=== PATIENT | male | born 1985 | race Hispanic/Latino ===

== ENCOUNTER 2017-08-29 22:04 | Emergency (ER) | payer SELFPAY ==
--- NOTE | 2017-08-29 22:43 | C.PDOC ---
History Of Present Illness 32 year old male presents to the ER in police custody for substance abuse. Patient has not verbalized any physical complaints. Chief Complaint (Nursing): Substance Abuse History Per: Patient History/Exam Limitations: no limitations Onset/Duration Of Symptoms: Hrs Current Symptoms Are (Timing): Still Present Suicide/Self Injury Attempted (Context): None Modifying Factor(s): Other (Substance abuse) Involuntary Hold By: Local Law Enforcement Recent travel outside of the [place]: No Past Medical History Reviewed: Historical Data, Nursing Documentation, Vital Signs Vital Signs: Last Vital Signs Temp 98 F 08/30/17 00:45 Pulse 70 08/30/17 00:45 Resp 16 08/30/17 00:45 BP 135/70 08/30/17 00:45 Pulse Ox 99 08/30/17 01:03 - Medical History PMH: No Chronic Diseases Surgical History: No Surg Hx Family History: States: Unknown Family Hx - Social History Hx Alcohol Use: Yes Hx Substance Use: Yes Review Of Systems Constitutional: Negative for: Fever, Chills Gastrointestinal: Negative for: Nausea, Vomiting, Diarrhea Physical Exam - Physical Exam Appears: Non-toxic, No Acute Distress, Other (Lethargic but arousable) Skin: Warm, Dry Head: Atraumatic, Normacephalic Eye(s): bilateral: Normal Inspection (Not pin point), PERRL, EOMI Oral Mucosa: Moist Neck: Normal, Supple Chest: Symmetrical, No Tenderness Cardiovascular: Rhythm Regular Respiratory: Normal Breath Sounds, No Rales, No Rhonchi, No Wheezing Gastrointestinal/Abdominal: Soft, No Tenderness Extremity: Other (Small abrasion to left hand) Neurological/Psych: No Normal Speech, Normal Cranial Nerves, No Cerebellar Signs , Other (No focal deficits, slurring of speech, lethatgic but response to stimuli.) ED Course And Treatment - Laboratory Results Result Diagrams: 08/29/17 23:03 08/29/17 23:03 O2 Sat by Pulse Oximetry: 99 (Room air) Pulse Ox Interpretation: Normal Progress Note: Blood work and urinalysis ordered. Patient persists to be lethargic but arousable, normal vital signs. Patient is alert, conscious, oriented x3, and steady of gait; cleared to be discharged. Disposition Counseled Patient/Family Regarding: Diagnosis - Disposition Referrals: [facility] [Outside] Disposition: HOME/ ROUTINE Disposition Time: 01:03 Condition: STABLE Instructions: Polysubstance Abuse (ED) Forms: [employer] (Surinamese) - POA Present On Arrival: None - Clinical Impression Clinical Impression: Drug abuse - Scribe Statement The provider has reviewed the documentation as recorded by the Scribevelyn Butts All medical record entries made by the Scribe were at my direction and personally dictated by me. I have reviewed the chart and agree that the record accurately reflects my personal performance of the history, physical exam, medical decision making, and the department course for this patient. I have also personally directed, reviewed, and agree with the discharge instructions and disposition.
[2017-08-29 22:47] LABS: URINE BILIRUBIN NEGATIVE (NEGATIVE); URINE BLOOD NEGATIVE (NEGATIVE); URINE COLOR Colorless (YELLOW); URINE GLUCOSE (UA) NORMAL (Normal); URINE KETONE NEGATIVE (NEGATIVE); URINE LEUKOCYTE ESTERASE NEG Leu/uL (Negative); URINE PROTEIN NEGATIVE (NEGATIVE); URINE UROBILINOGEN NORMAL mg/dL (0.2-1.0); WBC URINE < 1 /hpf (0-5)
[2017-08-29 23:06] LABS: BASO # 0.1 K/uL (0.0-0.2); BASO % 1.2 % (0.0-2.0); EOS # 0.5 K/uL (0.0-0.7); EOS % 7.4 % (0.0-4.0); HEMATOCRIT 36.6 % (35.0-51.0); LYMPH # 2.2 K/uL (1.0-4.3); LYMPH % 30.6 % (20.0-40.0); MEAN CELL VOLUME 83.7 fL (80.0-94.0); MEAN CORPUSCULAR HEMOGLOBIN 28.3 pg (27.0-31.0); MEAN CORPUSCULAR HGB CONC 33.8 g/dL (33.0-37.0); MEAN PLATELET VOLUME 6.7 fL (7.2-11.7); MONO # 0.7 K/uL (0.0-0.8); MONO % 9.9 % (0.0-10.0); NRBC % 0.1 % (0.0-2.0); RED CELL DISTRIBUTION WIDTH 15.3 % (11.5-14.5); WHITE BLOOD COUNT 7.3 K/uL (4.8-10.8)
[2017-08-29 23:19] LABS: ALCOHOL SERUM < 10 mg/dl (0-10); ALKALINE PHOSPHATASE 88 U/L (38-126); ALT/SGPT 19 U/L (21-72); AST/SGOT 18 U/L (17-59); BILIRUBIN,TOTAL 0.3 mg/dL (0.2-1.3); BLOOD UREA NITROGEN 13 mg/dL (9-20); CALCIUM 8.9 mg/dl (8.6-10.4); CARBON DIOXIDE 28 mmol/L (22-30); CHLORIDE 99 mmol/L (98-107); GFR AFRICAN-AMERICAN > 60; GLUCOSE,RANDOM 89 mg/dL (75-110); POTASSIUM 3.9 mmol/L (3.6-5.2); SODIUM 137 mmol/L (132-148); TOTAL PROTEIN 8.6 g/dL (6.3-8.3)
[2017-08-29 23:21] LABS: ALB/GLOB RATIO 0.9 (1.0-2.1)
[2017-08-30 00:45] VITALS: BP 135/70; PULSE 70; RESP 16; TEMP 98
[2017-08-30 01:04] VITALS: O2SAT 99
== END 2017-08-30 01:07 | disposition home or self-care (01) ==
LOC: C.ER 22:04
DX: F19.10 Other psychoactive substance abuse, uncomplicated (principal)
CPT/HCPCS: 80053; 81001; 82948; 85025; 99285; G0480

== ENCOUNTER 2017-09-03 23:47 | Emergency (ER) | payer MEDICAID ==
--- NOTE | 2017-09-04 00:10 | C.PDOC ---
History Of Present Illness 32 year old male presents to the ER in police custody for medical and psychological clearance. Patient states he is hearing voices telling him to kill himself; he notes he has a Hx of anxiety and depression and take seroquel and depakote. Patient admits to ETOH and IV drug abuse today; denies fever, chills, or suicide plan. Chief Complaint (Nursing): Medical Clearance History Per: Patient History/Exam Limitations: no limitations Onset/Duration Of Symptoms: Hrs Current Symptoms Are (Timing): Still Present Recent travel outside of the [place]: No Past Medical History Reviewed: Historical Data, Nursing Documentation, Vital Signs Vital Signs: Last Vital Signs Temp 98.1 F 09/04/17 05:57 Pulse 80 09/04/17 05:57 Resp 18 09/04/17 05:57 BP 138/77 09/04/17 05:57 Pulse Ox 98 09/04/17 05:57 - Medical History PMH: HIV Surgical History: No Surg Hx Family History: States: Unknown Family Hx - Social History Hx Alcohol Use: Yes Hx Substance Use: Yes Review Of Systems Constitutional: Negative for: Fever, Chills Musculoskeletal: Positive for: Hand Pain Psych: Positive for: Suicidal ideation Physical Exam - Physical Exam Appears: Non-toxic, No Acute Distress, Unkempt, Other (Mumbling words) Skin: Warm, Dry Head: Atraumatic, Normacephalic Eye(s): bilateral: Normal Inspection, PERRL, EOMI Oral Mucosa: Moist Neck: Normal, Supple Chest: Symmetrical, No Tenderness Cardiovascular: Rhythm Regular Respiratory: Normal Breath Sounds, No Rales, No Rhonchi, No Wheezing Gastrointestinal/Abdominal: Soft, No Tenderness Extremity: Other (Chronic bilateral hand/wrist edema wuth numerous excoriations and deep fissures to knuckles with diffuse scarring due to IV drug use. Numerous fresh needle track kaur to upper extremities.) Neurological/Psych: Oriented x3, Normal Speech, Other (No focal deficits) ED Course And Treatment - Laboratory Results Result Diagrams: 09/04/17 00:37 09/04/17 00:37 Pulse Ox Interpretation: Normal Medical Decision Making Medical Decision Making: Blood work and urinalysis ordered. Crisis notified. Disposition Discussed With : Tadeo Silverman - Disposition Disposition: HOSPITALIZED Disposition Time: 06:40 Condition: FAIR Forms: [employer] (Vietnamese) - Clinical Impression Clinical Impression: Polysubstance dependence including opioid type drug, continuous use, with perceptual disturbance, Schizoaffective disorder - Scribe Statement The provider has reviewed the documentation as recorded by the Scribe Shawn Butts All medical record entries made by the Scribe were at my direction and personally dictated by me. I have reviewed the chart and agree that the record accurately reflects my personal performance of the history, physical exam, medical decision making, and the department course for this patient. I have also personally directed, reviewed, and agree with the discharge instructions and disposition. Decision To Admit - Pt Status Changed To: Hospital Disposition Of: Inpatient - Admit Certification Admit to Inpatient:: After my assessment, the patient will require hospitalization for at least two midnights. This is because of the severity of symptoms shown, intensity of services needed, and/or the medical risk in this patient being treated as an outpatient. - InPatient: Physician Admission Certification: I certify that this patient requires 2 or more midnights of care for the following reason:: schizoaffective disorder - . Bed Request Type: Psychiatry Admitting Physician: Tadeo Silverman Patient Diagnosis: Polysubstance dependence including opioid type drug, continuous use, with perceptual disturbance, Schizoaffective disorder
[2017-09-04 00:41] LABS: BASO % 0.3 % (0.0-2.0); EOS # 0.4 K/uL (0.0-0.7); EOS % 4.3 % (0.0-4.0); HEMATOCRIT 35.4 % (35.0-51.0); LYMPH # 1.7 K/uL (1.0-4.3); MEAN CELL VOLUME 83.9 fL (80.0-94.0); MEAN CORPUSCULAR HEMOGLOBIN 27.4 pg (27.0-31.0); MEAN CORPUSCULAR HGB CONC 32.6 g/dL (33.0-37.0); MEAN PLATELET VOLUME 6.8 fL (7.2-11.7); MONO # 0.6 K/uL (0.0-0.8); MONO % 6.8 % (0.0-10.0); NRBC % 0.1 % (0.0-2.0); RED CELL DISTRIBUTION WIDTH 15.7 % (11.5-14.5); WHITE BLOOD COUNT 9.2 K/uL (4.8-10.8)
[2017-09-04 00:56] LABS: ALB/GLOB RATIO 0.8 (1.0-2.1); ALCOHOL SERUM < 10 mg/dl (0-10); ALKALINE PHOSPHATASE 80 U/L (38-126); ALT/SGPT 27 U/L (21-72); AST/SGOT 14 U/L (17-59); BILIRUBIN,TOTAL 0.4 mg/dL (0.2-1.3); BLOOD UREA NITROGEN 10 mg/dL (9-20); CALCIUM 8.3 mg/dl (8.6-10.4); CARBON DIOXIDE 33 mmol/L (22-30); CHLORIDE 100 mmol/L (98-107); GFR AFRICAN-AMERICAN > 60; GLUCOSE,RANDOM 99 mg/dL (75-110); POTASSIUM 3.7 mmol/L (3.6-5.2); SODIUM 138 mmol/L (132-148); TOTAL PROTEIN 8.2 g/dL (6.3-8.3)
[2017-09-04 03:42] LABS: RBC URINE < 1 /hpf (0-3); URINE BILIRUBIN NEGATIVE (NEGATIVE); URINE BLOOD NEGATIVE (NEGATIVE); URINE COLOR Yellow (YELLOW); URINE GLUCOSE (UA) NORMAL (Normal); URINE KETONE NEGATIVE (NEGATIVE); URINE LEUKOCYTE ESTERASE NEG Leu/uL (Negative); URINE PROTEIN NEGATIVE (NEGATIVE); WBC URINE 1 /hpf (0-5)
[2017-09-04 05:58] VITALS: O2SAT 98
[2017-09-04 07:45] VITALS: BP 128/62; PULSE 82; RESP 20; TEMP 98.3
== END 2017-09-04 08:30 ==
LOC: C.ER 23:47 → C.9E 09-04 06:42 → UNDOADMIN 09-04 06:42 → C.ER 09-04 08:30
DX: F11.222 Opioid dependence with intoxication with perceptual disturbance (principal); F25.9 Schizoaffective disorder, unspecified